=== PATIENT | female | born 1965 | race Native Hawaiian/Other Pacific Islander ===

== ENCOUNTER 2016-06-24 16:34 | Outpatient (CLI) | payer OTHER ==
[~2016-06-24 16:34] MED LIST: BUPROPN HCL300 MG PO; CRESTOR20 MG PO; HYDR-3182 PO; HYDR10TA47 PO; HYDROCHLOROT12.5 M1 PO; LISITAB PO; NEXIUM40 M1 PO
== END 2016-06-24 16:36 | disposition short-term general hospital (02) ==
LOC: AMB 16:34
DX: M25.552 Pain in left hip (principal); M25.562 Pain in left knee; M25.561 Pain in right knee; W01.0XXA Fall on same level from slipping, tripping and stumbling without subsequent striking against object, initial encounter; Y92.524 Gas station as the place of occurrence of the external cause
CPT/HCPCS: A0425; A0429

== ENCOUNTER 2016-06-24 16:38 | Emergency (ER) | payer OTHER ==
[~2016-06-24] VITALS: Ht 160 cm; Wt 117.9 kg
[2016-06-24 16:40] VITALS: BP 129/92; TEMP 99.8
== END 2016-06-24 19:29 | disposition home or self-care (01) ==
LOC: ED 16:38
DX: S76.812A Strain of other specified muscles, fascia and tendons at thigh level, left thigh, initial encounter (principal); S80.01XA Contusion of right knee, initial encounter; W01.0XXA Fall on same level from slipping, tripping and stumbling without subsequent striking against object, initial encounter; Y93.89 Activity, other specified; Y92.512 Supermarket, store or market as the place of occurrence of the external cause
CPT/HCPCS: 99282

== ENCOUNTER 2016-07-08 09:14 | Outpatient (CLI) | payer OTHER | END 2016-07-08 10:14 | disposition home or self-care (01) | LOC: MAMMO 09:14 | DX: Z12.31 Encounter for screening mammogram for malignant neoplasm of breast (principal) | CPT/HCPCS: G0202-TC ==

== ENCOUNTER 2017-07-10 11:25 | Outpatient (CLI) | payer OTHER | END 2017-07-10 19:25 | disposition home or self-care (01) | LOC: MAMMO 11:25 | DX: Z12.31 Encounter for screening mammogram for malignant neoplasm of breast (principal) ==

== ENCOUNTER 2017-12-11 18:58 | Emergency (ER) | payer OTHER ==
[~2017-12-11] VITALS: Ht 160 cm; Wt 93.9 kg
[2017-12-11 20:16] LABS: PLATELET COUNT 194 K/uL (152-353)
[2017-12-11 20:28] LABS: POTASSIUM 3.7 mmol/L (3.6-5.2)
[2017-12-12 00:57] VITALS: BP 117/77; TEMP 98.3
== END 2017-12-12 00:58 | disposition home or self-care (01) ==
LOC: ED 18:58
PROVIDERS: Family Medicine
DX: K58.9 Irritable bowel syndrome, unspecified (principal); R10.9 Unspecified abdominal pain
CPT/HCPCS: 36415; 80053; 81000; 85027; 96372; 96374; 99284; J0500; J2405; Q9963

== ENCOUNTER 2018-04-10 09:54 | Outpatient (CLI) | payer OTHER | END 2018-04-10 22:31 | disposition home or self-care (01) | LOC: RAD 09:54 | DX: M25.512 Pain in left shoulder (principal) ==

== ENCOUNTER 2018-05-28 09:33 | Outpatient (CLI) | payer OTHER | END 2018-05-28 20:49 | disposition home or self-care (01) | LOC: RAD 09:33 | DX: M54.2 Cervicalgia (principal) ==

== ENCOUNTER 2018-07-08 04:42 | Emergency (ER) | payer OTHER ==
[~2018-07-08] VITALS: Ht 160 cm; Wt 99.8 kg
[2018-07-08 05:50] VITALS: BP 107/84; TEMP 97.3
== END 2018-07-08 05:51 | disposition home or self-care (01) ==
LOC: ED 04:42
DX: M25.512 Pain in left shoulder (principal)
CPT/HCPCS: 96372; 99282; J1885

== ENCOUNTER 2018-11-28 22:50 | Emergency (ER) | payer OTHER ==
[~2018-11-28] VITALS: Ht 160 cm; Wt 108.9 kg
[2018-11-28 23:55] VITALS: BP 128/84; TEMP 98.3
== END 2018-11-28 23:55 | disposition home or self-care (01) ==
LOC: ED 22:50
DX: J04.0 Acute laryngitis (principal); F17.210 Nicotine dependence, cigarettes, uncomplicated
CPT/HCPCS: 87651; 96372; 99283; J2930

== ENCOUNTER 2020-02-24 13:43 | Outpatient (CLI) | payer OTHER | END 2020-02-24 23:30 | disposition home or self-care (01) | LOC: MAMMO 13:43 | DX: Z12.31 Encounter for screening mammogram for malignant neoplasm of breast (principal) ==

== ENCOUNTER 2020-05-21 16:06 | Emergency (ER) | payer OTHER ==
[~2020-05-21] VITALS: Ht 160 cm; Wt 108.9 kg
[2020-05-21 16:06] VITALS: TEMP 98.7
[2020-05-21 18:40] VITALS: BP 139/70
== END 2020-05-21 18:40 | disposition home or self-care (01) ==
LOC: ED 16:06
DX: S80.02XA Contusion of left knee, initial encounter (principal); S09.8XXA Other specified injuries of head, initial encounter; S81.012A Laceration without foreign body, left knee, initial encounter; W10.8XXA Fall (on) (from) other stairs and steps, initial encounter; Y92.89 Other specified places as the place of occurrence of the external cause
CPT/HCPCS: 99283

== ENCOUNTER → 2020-06-18 | Outpatient (CLI) | payer OTHER ==
[2020-06-18 09:38] LABS: PLATELET COUNT 240 K/uL (152-353)
[2020-06-18 09:47] LABS: POTASSIUM 4.2 mmol/L (3.6-5.2)
== END ==
LOC: LABW 08:25
PROVIDERS: ATTEND Family Medicine
DX: I10 Essential (primary) hypertension (principal); Z68.42 Body mass index [BMI] 45.0-49.9, adult; G47.33 Obstructive sleep apnea (adult) (pediatric); F32.9 Major depressive disorder, single episode, unspecified; Z82.49 Family history of ischemic heart disease and other diseases of the circulatory system; Z82.3 Family history of stroke; M25.569 Pain in unspecified knee; E55.9 Vitamin D deficiency, unspecified
CPT/HCPCS: 36415; 80053; 80061; 81000; 82306; 84439; 84443; 84550; 85027

== ENCOUNTER 2020-06-25 07:39 | Outpatient (CLI) | payer OTHER | END 2020-06-25 21:23 | disposition home or self-care (01) | LOC: LABW 07:39 | PROVIDERS: ATTEND Family Medicine | DX: R73.9 Hyperglycemia, unspecified (principal) | CPT/HCPCS: 36415; 83036 ==

== ENCOUNTER 2020-10-28 15:22 | Outpatient (CLI) | payer OTHER | END 2020-10-28 22:20 | disposition home or self-care (01) | LOC: RAD 15:22 | PROVIDERS: ATTEND Family Medicine | DX: M79.672 Pain in left foot (principal); S99.922A Unspecified injury of left foot, initial encounter; X58.XXXA Exposure to other specified factors, initial encounter; Y93.89 Activity, other specified; Y92.89 Other specified places as the place of occurrence of the external cause ==

== ENCOUNTER 2021-05-19 21:56 | Emergency (ER) | payer OTHER ==
[~2021-05-19] VITALS: Ht 160 cm; Wt 120.2 kg
[2021-05-19 22:38] LABS: PLATELET COUNT 237 K/uL (152-353)
[2021-05-19 22:48] LABS: POTASSIUM 3.3 mmol/L (3.6-5.2)
[2021-05-19 23:51] VITALS: BP 100/52; TEMP 97.8
== END 2021-05-19 23:51 | disposition home or self-care (01) ==
LOC: ED 21:56
PROVIDERS: Hospitalist
DX: R10.84 Generalized abdominal pain (principal); K80.20 Calculus of gallbladder without cholecystitis without obstruction
CPT/HCPCS: 80053; 81000; 83690; 85027; 96360; 96375; 99284; J1885; J2405

== ENCOUNTER 2021-06-02 08:12 | Outpatient (CLI) | payer OTHER | END 2021-06-02 18:53 | disposition home or self-care (01) | LOC: US 08:12 | PROVIDERS: ATTEND Family Medicine | DX: R10.9 Unspecified abdominal pain (principal); R11.2 Nausea with vomiting, unspecified; K80.20 Calculus of gallbladder without cholecystitis without obstruction ==

== ENCOUNTER 2021-11-16 09:53 | Outpatient (CLI) | payer OTHER | END 2021-11-16 19:10 | disposition home or self-care (01) | LOC: RAD 09:53 | PROVIDERS: ATTEND Family Medicine | DX: M25.562 Pain in left knee (principal) ==

== ENCOUNTER 2021-11-23 21:29 | Emergency (ER) | payer OTHER ==
[~2021-11-23] VITALS: Ht 160 cm; Wt 120.2 kg
[2021-11-24] VITALS: BP 103/77; TEMP 98.6
== END 2021-11-24 | disposition home or self-care (01) ==
LOC: ED 21:29
DX: G43.909 Migraine, unspecified, not intractable, without status migrainosus (principal)
CPT/HCPCS: 96372; 99283; J1170; J2405

== ENCOUNTER 2021-11-26 13:01 | Observation (INO) | payer OTHER ==
[~2021-11-26] VITALS: Ht 160 cm; Wt 126.1 kg
[2021-11-26 14:31] LABS: PLATELET COUNT 243 K/uL (152-353)
[2021-11-26 14:47] LABS: PARTIAL THROMBOPLASTIN TIME 26.1 SECONDS (24.5-33.6)
[2021-11-26 18:01] VITALS: BP 110/71; TEMP 97.8; Ht 160 cm; Wt 126.1 kg
[2021-11-26 20:00] VITALS: BP 98/64; TEMP 98.5
[2021-11-26] MEDS ORDERED: PIOGLITAZONE HY30 MG PO (22:54)
[2021-11-26] MEDS ORDERED: HYDROCODONE BIT1 TA2 PO (22:55)
[2021-11-26] MEDS ORDERED: JARDIANCE25 MG PO (22:56)
[2021-11-26] MEDS ORDERED: FENOFIBRATE54 MG PO (22:57)
[2021-11-26] MEDS ORDERED: TOPIRAMATE25 MG PO (22:58)
[2021-11-26] MEDS ORDERED: DULOXETINE HYDR60 MG PO (22:59)
[2021-11-26] MEDS ORDERED: OMEPRAZOLE DR20 MG PO (23:00)
[2021-11-26] MEDS ORDERED: NEURONTIN800 MG PO (23:01)
[2021-11-26] MEDS ORDERED: ROSUVASTATIN CA40 MG PO (23:02)
[2021-11-27] VITALS: BP 95/61; TEMP 98.2
[2021-11-27 04:00] VITALS: BP 93/55; TEMP 97.8
[2021-11-27 05:07] LABS: PLATELET COUNT 189 K/uL (152-353)
[2021-11-27 08:00] VITALS: BP 118/80; TEMP 97.8
[2021-11-27 12:00] VITALS: BP 111/62; TEMP 97.9
[2021-11-27 16:07] VITALS: BP 100/61; TEMP 98.3
[2021-11-27 20:00] VITALS: BP 95/64; TEMP 98
[2021-11-28] VITALS: BP 109/71; TEMP 97.8
[2021-11-28 04:00] VITALS: BP 107/71; TEMP 97.8
[2021-11-28 05:00] LABS: POTASSIUM 3.3 mmol/L (3.6-5.2)
[2021-11-28 08:00] VITALS: BP 127/87; TEMP 97.9
[2021-11-28 12:00] VITALS: BP 134/82; TEMP 97.6
== END 2021-11-28 13:00 | disposition home or self-care (01) ==
LOC: MED/SURG 13:01
PROVIDERS: ADMIT Family Medicine; ATTEND Family Medicine
DX: R51.9 Headache, unspecified (principal); R11.0 Nausea; H53.149 Visual discomfort, unspecified; E78.49 Other hyperlipidemia; I10 Essential (primary) hypertension; K21.9 Gastro-esophageal reflux disease without esophagitis; E11.9 Type 2 diabetes mellitus without complications; E86.0 Dehydration; D72.828 Other elevated white blood cell count; E87.6 Hypokalemia; K59.09 Other constipation; F41.1 Generalized anxiety disorder
CPT/HCPCS: 36415; 80048; 80053; 83735; 85027; 85610; 85730; 87635; 96361; 96374; 96375; 99220; G0378; G0379; J1885; J2060; J2405; J3490; U0003

== ENCOUNTER 2022-06-23 21:41 | Emergency (ER) | payer OTHER ==
[~2022-06-23] VITALS: Ht 160 cm; Wt 127.0 kg
[~2022-06-23 21:41] MED LIST changes: +DULOXETINE HYDR60 MG PO; +FENOFIBRATE54 MG PO; +HYDROCODONE BIT1 TA2 PO; +JARDIANCE25 MG PO; +NEURONTIN800 MG PO; +OMEPRAZOLE DR20 MG PO; +PIOGLITAZONE HY30 MG PO; +ROSUVASTATIN CA40 MG PO; +TOPIRAMATE25 MG PO
[2022-06-24 00:01] VITALS: BP 126/81; TEMP 97.3
== END 2022-06-24 00:01 | disposition home or self-care (01) ==
LOC: ED 21:41
DX: S50.02XA Contusion of left elbow, initial encounter (principal); S50.312A Abrasion of left elbow, initial encounter; W01.0XXA Fall on same level from slipping, tripping and stumbling without subsequent striking against object, initial encounter; Y92.098 Other place in other non-institutional residence as the place of occurrence of the external cause
CPT/HCPCS: 90471; 90715; 96372; 99283; J1885

== ENCOUNTER 2022-12-05 21:15 | Emergency (ER) | payer OTHER ==
[~2022-12-05] VITALS: Ht 160 cm; Wt 130.2 kg
[2022-12-05 21:52] VITALS: BP 129/76; TEMP 98.7
[2022-12-05 22:43] LABS: PLATELET COUNT 259 K/uL (152-353)
[2022-12-05 23:06] LABS: POTASSIUM 3.5 mmol/L (3.6-5.2)
== END 2022-12-06 00:39 | disposition home or self-care (01) ==
LOC: ED 21:15
PROVIDERS: Family Medicine
DX: M54.50 Low back pain, unspecified (principal); R31.9 Hematuria, unspecified; F17.200 Nicotine dependence, unspecified, uncomplicated
CPT/HCPCS: 36415; 80053; 81000; 85027; 87077; 87086; 87088; 87186; 96360; 99284; J1885; J2405

== ENCOUNTER 2022-12-07 17:29 | Outpatient (CLI) | payer OTHER | END 2022-12-07 19:01 | disposition home or self-care (01) | LOC: RAD 17:29 | PROVIDERS: ATTEND Family Medicine | DX: M54.16 Radiculopathy, lumbar region (principal); M48.062 Spinal stenosis, lumbar region with neurogenic claudication; M47.816 Spondylosis without myelopathy or radiculopathy, lumbar region; M54.12 Radiculopathy, cervical region; M47.812 Spondylosis without myelopathy or radiculopathy, cervical region ==

== ENCOUNTER 2023-01-04 08:24 | Outpatient (CLI) | payer OTHER | END 2023-01-04 18:53 | disposition home or self-care (01) | LOC: MRI 08:24 | PROVIDERS: ATTEND Student in an Organized Health Care Education/Training Program | DX: M54.12 Radiculopathy, cervical region (principal); M47.812 Spondylosis without myelopathy or radiculopathy, cervical region; M54.16 Radiculopathy, lumbar region; M48.062 Spinal stenosis, lumbar region with neurogenic claudication; M47.816 Spondylosis without myelopathy or radiculopathy, lumbar region ==